=== PATIENT | female | born 1995 | race Caucasian/White ===

== ENCOUNTER 2018-11-28 11:36 | Outpatient (CLI) | payer BC ==
[~2018-11-28] VITALS: Ht 160 cm; Wt 49.0 kg
[2018-11-28 12:06] VITALS: BP 106/63
[2018-11-28 12:33] LABS: HEMATOCRIT 39.1 % (37.0-47.0); HEMOGLOBIN 13.3 gm/dL (12.0-15.0); MCH 31.5 pg (26.0-34.0); MCHC 34.1 g/dL (28.0-37.0); MCV 92.3 fL (80.0-100.0); RBC 4.23 mil/uL (4.20-5.00); RDW 12.5 % (10.5-14.5); WBC 5.1 thou/uL (4.0-11.0)
[2018-11-28] MEDS ORDERED: NEXPLANON68 MG SUBQ (12:34)
[2018-11-28 12:41] LABS: CALCIUM 9.3 mg/dL (8.5-10.1); CREATININE 0.7 mg/dL (0.6-1.0); POTASSIUM 4.3 mmol/L (3.5-5.1)
[2018-11-28 15:00] VITALS: BP 111/57
[2018-11-28 15:15] VITALS: BP 98/51
--- NOTE | 2018-11-28 19:47 | NUR ---
23 YO FEMALE ADMITTED TO [address] FROM IR. PATIENT ALERT AND ORIENTED, L GROIN, CDI, STABLE WITH FREQUENT CHECKS, VOIDED PER BEDPAN, DENIES PAIN
== END 2018-11-28 18:30 | disposition home or self-care (01) ==
LOC: SPEC 11:36 → 2N 11:36 → SPEC 18:30
PROVIDERS: Nuclear Medicine Nuclear Cardiology
DX: M79.604 Pain in right leg (principal); M79.605 Pain in left leg; Z79.899 Other long term (current) drug therapy; Z98.890 Other specified postprocedural states
CPT/HCPCS: 10081